=== PATIENT | male | born 1990 ===

== ENCOUNTER → 2025-09-22 06:43 | Outpatient (REF) | payer OTHER, SELFPAY | LOC: PAVMRI 06:43 | PROVIDERS: ATTENDING PHYSICIAN Physical Medicine & Rehabilitation; FAMILY PHYSICIAN Family Medicine | DX: M54.50 Low back pain, unspecified (principal); M54.17 Radiculopathy, lumbosacral region | CPT/HCPCS: 72148 ==

== ENCOUNTER 2025-09-26 07:25 | Outpatient (RCR) | payer OTHER, SELFPAY | END 2025-09-26 23:59 | disposition home or self-care (01) | LOC: RPT 07:25 | PROVIDERS: ATTENDING PHYSICIAN Family Medicine | DX: M54.16 Radiculopathy, lumbar region (principal); M54.17 Radiculopathy, lumbosacral region; Z73.6 Limitation of activities due to disability; M62.81 Muscle weakness (generalized) | CPT/HCPCS: 97110; 97112; 97140; 97162; 97530 ==

== ENCOUNTER 2025-10-10 06:58 | Outpatient (RCR) | payer OTHER, SELFPAY | END 2025-10-15 23:59 | disposition home or self-care (01) | LOC: RPT 06:58 | PROVIDERS: ATTENDING PHYSICIAN Family Medicine | DX: M54.16 Radiculopathy, lumbar region (principal); M54.17 Radiculopathy, lumbosacral region; Z73.6 Limitation of activities due to disability; M62.81 Muscle weakness (generalized) | CPT/HCPCS: 97110; 97112 ==